=== PATIENT | male | born 2000 | race Caucasian/White ===

== ENCOUNTER 2024-05-13 08:15 | Emergency (ER) | payer OTHER, SELFPAY ==
[2024-05-13 08:24] VITALS: BP 141/101
--- NOTE | 2024-05-13 09:44 | ED.GENMED ---
History of Present Illness
General
Chief Complaint: Abdominal Symptoms
Source: patient and family
Time Seen by Provider: 05/13/24 08:51
History of Present Illness
History of Present Illness:
This patient is a 24-year-old male presents emergency department complaints of right-sided lower back pain associated with right 'in my privates' pain that is been going on and off for about a week. He got concerned today when he noticed that his
urine looked pink. He did a Google search and he is suspicious for kidney stone although he does not have a prior history of such. 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 The pain is not
reproducible, and there are no exacerbating relieving factors such as movement, etc. He denies dysuria, fever, chills, chest pain, shortness of breath, abdominal pain, or other complaints. Patient is pain-free at this time.
Past History
Past History
ED Past Medical History: None
ED Past Surgical History: None
Social History
Tobacco: Non-smoker
Alcohol: None
Drug: None
Personal: Single
Living: with family
Employment: Student
Phy Exam
Physical Exam
Physical Exam:
GENERAL: Alert , in no apparent distress
EYE: pupils equal and reactive
NECK: Supple, no significant adenopathy.
ENT: o/p clr, mmm.
CARDIAC: Regular rate and rhythm .
LUNGS: Clear breath sounds bilaterally, no acute respiratory distress, no wheezes/rales/rhonchi
ABDOMEN: Soft, without focal tenderness, no r/g, no cvat
NEUROLOGICAL: Alert and oriented, no focal neuro deficits
SKIN: Warm and dry, skin intact.
MUSCULOSKELETAL: No edema, well perfused.
PSYCH: Normal and appropriate interaction.
: no swelling/redness/warmth, no lesions, nontender
Course
Orders/Labs/Results
Orders:
Orders
05/13/24 09:10
0.9% Sodium Chloride 1000 ml [Nss] 1,000 ml IV BOLUS
Ketorolac [Toradol] 15 mg IV NOW STA
05/13/24 09:11
CT Abd/pel Without Iv Or Oral Stat
Comment:
Reason For Exam: r flank pain
05/13/24 09:22
Complete Blood Count/No Diff Urgent
Comprehensive Metabolic Panel Urgent
Urinalysis Reflex To Culture Urgent
Date Specimen was Collected: 05/13/24
Time Specimen was Collected: 09:13
05/13/24 10:30
US Scrotum Urgent
Comment:
Reason For Exam: R pain
Abnormal Lab Results
05/13/24
09:22
Glucose 105 H mg/dl
(70-99)
Total Protein 8.6 H g/dl
(6.3-8.2)
Albumin 5.5 H g/dl
(3.5-5.0)
05/13/24 09:22
05/13/24 09:22
Vital Signs
Initial and Last Documented VS:
Initial Vital Signs
Temp Pulse Resp BP Pulse Ox
98.2 F 67 16 141/101 98
05/13/24 08:24 05/13/24 08:24 05/13/24 08:24 05/13/24 08:24 05/13/24 08:24
Last Documented Vital Signs
Temp Pulse Resp BP Pulse Ox
98.2 F 74 18 119/68 100
05/13/24 08:24 05/13/24 10:47 05/13/24 10:47 05/13/24 10:47 05/13/24 10:47
*Critical Care Note
Total Time (30-74mins, 75-104mins- exclusive of procedures): Not Applicable
Update Note
Update Note:
Patient presents to the Emergency Department with ___back and testicular pain
Number and Complexity of Problems Addressed at the Encounter
� Chronic conditions affecting care:
� Acute Exacerbation and/or Progression of Chronic Illness:
� Differential Diagnosis includes: But not limited to kidney stone, pyelonephritis, epididymitis, etc. etc.
Amount and/or Complexity of Data to be Reviewed and Analyzed
� I performed an independent evaluation of and my interpretation is:
EKG:
CT: Unremarkable blood for mild constipation
Xrays:
Laboratory Studies: Unremarkable
Other: Ultrasound scrotum unremarkable
� Review of other/old records reveals:
� Clinical information was obtained by an independent historian: Mom who is bedside
� Prescriptions/Medications Considered but not given:
� Further testing considered but not performed:
Risk of Complications and/or Morbidity or Mortality of Patient Management
� Social determinants of health affecting care:
� Discussion with other providers (PCP, Hospitalists, Consultants, etc):
� Escalation of care including admission/observation vs risk of discharge considered: 9:46 AM testing pending, patient remains pain-free and comfortable.
12:39 PM workup unremarkable here, patient remains pain-free. Unclear etiology for patient's symptoms however serious causes not identified at this time. Long discussion with patient and mom and including importance of follow-up and reasons to
return to the ER.
ED Attending Note
-
Portions of this chart may have been created with voice recognition software.� Occasional wrong word or��sound alike� substitutions may have occurred due to the inherent limitations of voice recognition software.
Discharge Plan
Departure
Patient Disposition: Home (Routine Discharge)
Date of Disposition: 05/13/24
Time of Disposition: 12:38
Patient with high blood pressure during this ER visit?: Yes
Condition: Good
Discharge Problem:
Back pain
Instructions: Back Pain, BLOOD PRESSURE
Prescriptions:
No Action
sulfamethoxazole-trimethoprim 1 TABLET tablet
1 tab PO BID Qty: 14 0RF
mupirocin 22 GM ointment
22 gm TP TID Qty: 22 0RF
Referrals:
Von French MD [Family Provider] -
Stand Alone Forms: Return to Work
Activity Restrictions/Additional Instructions:
IF YOU DEVELOP INCREASING/NEW/RECURRENT PAIN, PAIN WITH URINATION, FEVER, VOMITING, ABDOMINAL PAIN, OR OTHER WORRISOME SIGNS, GO TO THE ER IMMEDIATELY!
Interventions
Interventions:
*Risk Screen - Suicide Last Done: 05/13/24 08:24
*Neglect/Abuse Screening Last Done: 05/13/24 08:24
MS-Kjqtsu-Kpvkxnoxkc Assessment Last Done: 05/13/24 09:30
Discharge Date and Time
Print Language: [id number]
[2024-05-13 09:50] LABS: Hematocrit 46.4 % (39.0-52.0); Hemoglobin 16.2 g/dL (13.0-18.0); Mean Corp Hgb Conc. 34.9 g/dL (33.0-37.0); Mean Corpuscular Hgb 29.6 pg (27.0-31.0); Mean Corpuscular Volume 84.8 fL (80.0-94.0); Mean Platelet Volume 9.9 fL (7.4-10.4); Platelet Count 221 10^3/uL (130-400); Red Blood Cell Count 5.47 10^6/uL (4.70-6.10); Red Cell Dist. Width 12.3 % (11.5-14.5); White Blood Cell Count 5.9 10^3/uL (4.8-10.8)
[2024-05-13 10:01] LABS: Urine Albumin Negative (Neg - Trace); Urine Bilirubin Negative (Negative); Urine Character Clear (Clear); Urine Color Straw; Urine Glucose Negative (Negative); Urine Ketone Negative (Negative); Urine Leukocyte Negative (Negative); Urine Nitrite Negative (Negative); Urine Occult Blood Negative (Negative); Urine Specific Gravity 1.005 (<1.030); Urine Urobilinogen Negative (Neg - 1+); Urine pH 6.5 (5.0-9.0)
[2024-05-13 10:23] LABS: ALT (SGPT) 29 U/L (0-50); AST (SGOT) 30 U/L (17-59); Albumin 5.5 g/dl (3.5-5.0); Alkaline Phosphatase 85 U/L (38-126); Blood Urea Nitrogen 14 mg/dl (9-20); Calcium 9.8 mg/dl (8.4-10.2); Carbon Dioxide 25 mmol/L (22-30); Chloride 103 mmol/L (98-107); Glucose 105 mg/dl (70-99); Potassium 4.3 mmol/L (3.5-5.1); Sodium 139 mmol/L (135-145); Total Bilirubin 0.5 mg/dl (0.2-1.3); Total Protein 8.6 g/dl (6.3-8.2); eGFR > 60.00
[2024-05-13 10:47] VITALS: BP 119/68
[2024-05-13 12:38] VITALS: BP 116/74
== END 2024-05-13 12:43 | disposition home or self-care (01) ==
LOC: EMR 08:15
PROVIDERS: EMERGENCY PHYSICIAN Emergency Medicine; FAMILY PHYSICIAN Family Medicine
DX: M54.50 Low back pain, unspecified (principal); N50.819 Testicular pain, unspecified; R31.9 Hematuria, unspecified; R03.0 Elevated blood-pressure reading, without diagnosis of hypertension; Z91.018 Allergy to other foods; Z91.048 Other nonmedicinal substance allergy status
CPT/HCPCS: 99284; 74176; 76870; 80053; 81003; 85027; 93976